=== PATIENT | male | born 1955 | race Caucasian/White ===

== ENCOUNTER 2016-05-15 10:29 | Emergency (ER) | payer MEDICARE ==
[2016-05-15 10:37] VITALS: TEMP 98.4; BMI 25.9
[2016-05-15 10:58] LABS: AUTOMATED BASOPHIL 0.7 % (0-2); AUTOMATED EOSINOPHIL 7.3 % (0-5); AUTOMATED MONOCYTE 4.8 % (3-10); AUTOMATED NEUTROPHIL 55.2 % (45-76); MPV 7.8 fL (7.4-10.4)
[2016-05-15] MEDS ORDERED: MORPHINE 4 MG/ML INJECTION IV ONE (11:02)
[2016-05-15] MEDS ORDERED: ONDANSETRON HCL 4 MG/2 ML VIAL IV ONE (11:02)
[2016-05-15] MEDS ORDERED: SODIUM CHLORIDE 0.9% 10 ML FLUSH FLUSH PRN (11:02)
--- NOTE | 2016-05-15 11:05 | EDPRACDOC ---
- General Information Chief Complaint: Dyspnea/Resp distress Stated Complaint: SHORTNESS OF BREATH Time Seen by Provider: 05/15/16 10:50 Information Source: Patient, Family Home Medications: Home Medications Albuterol/Ipratropium Neb [Duoneb] 3 ml INH Q4H PRN 03/05/13 Clonazepam [Klonopin] 0.5 mg PO BID 03/05/13 Furosemide [Lasix] 20 mg PO DAILY 03/05/13 Methadone HCl [Methadose] 10 mg PO TID 03/05/13 Acetaminophen with Codeine [TYLENOL WITH CODEINE; [employer] with Codeine] 5 ml PO Q6H PRN #120 ml 05/15/16 Budesonide/Formoterol Fumarate [Symbicort 160-4.5 Mcg Inhaler] 2 puff INH BID Levofloxacin [Levaquin] 750 mg PO DAILY #7 tab 05/15/16 Omeprazole [Prilosec] 20 mg PO BID 05/15/16 Prednisone [Deltasone, Orasone] 20 mg PO DAILY #20 tab 05/15/16 Venlafaxine HCl ER [Effexor XR] 75 mg PO DAILY 05/15/16 Allergies/Adverse Reactions: Allergies Allergy/AdvReac Type Severity Reaction Status Date / Time Sulfa (Sulfonamide Allergy Unknown Rash-Genera Verified 05/15/16 10:37 Antibiotics) lized - History of Present Illness Onset: 10 days HPI: Pt c/o yellow productive cough, sob, abd pain with swelling, n/v, generalized weakness, body aches bilateral rib pain x 10 days. Denies fever, earache, sore throat, congestion, cp, changes in bowel or bladder, leg swelling, rash. Hx pulmonary fibrosis and wears 3L NC constant Shortness of Breath: Mild Relevant History: Reports: Other (pulmonary fibrosis) Cough: Reports: Productive, Yellow Rhinorrhea: Reports: None Ear Symptoms: Reports: None SOB Worsens with: Reports: Exertion, Coughing, Lying Flat SOB Improves with: Reports: Nothing Associated Signs and symptoms: Reports: Cough, Nausea, Vomiting, Myalgia ED Past Medical History - History Reviewed Yes Nurses notes reviewed and agree except as marked - Patient Medical History Cardiac History: Reports: Hypertension Respiratory History: Reports: Asthma, Pneumonia (JAN 2013) Musculoskeletal History: Reports: Arthritis, Osteoarthritis Psychological History: Reports: Depression, Anxiety, Schizophrenia. Denies: Substance Use Disorder Systemic History: Denies: Cancer Surgical History: Reports: Cholecystectomy - Family Medical History Reports: Hypertension (mother, sister), Diabetes (father, sister), Cancer ( mother, sister), Stroke (mother, sister), Cardiac Disorders (mother, sister) - Social Medical History Smoking Status: Never smoker Social History: Denies: Substance Use Disorder ETOH: None Substance Abuse: None EDM Review of Systems - Review of Systems Constitutional: Fatigue, Weakness Ears: No Symptoms Reported. negative: Pain, Hearing Loss, Drainage, Ear Pulling Throat: No Symptoms Reported. negative: Pain, Swelling Nose: No Symptoms Reported. negative: Congestion, Bleeding, Discharge, Injection, Swelling, Deformity, Ecchymosis, Tender, Abrasion, Laceration Mouth: No Symptoms Reported. negative: Pain, Drooling Respiratory: Cough, Shortness of Breath Cardiovascular: No Symptoms Reported. negative: Chest Pain, Palpitations, Syncope, Edema, Orthopnea, PND, Skin Mottling, Cyanosis Gastrointestinal: Nausea, Pain, Vomiting Genitourinary: No Symptoms Reported. negative: Dysuria, Hematuria, Frequency, Discharge, Bleeding, Testicular Pain, Neurological: No Symptoms Reported. negative: Headache, Dizziness, Seizure, Numbness, Weakness, Speech Difficulty, Gait Difficulty Musculoskeletal: Ribs Integumentary: No Symptoms Reported. negative: Itching, Rash, Bruising, Wound Allergic/Immunologic: No Symptoms Reported. negative: Hives, Itching Hematologic: No Symptoms Reported. negative: Lymphadenopathy, Easy Bruising, Easy Bleeding Psychiatric: No Symptoms Reported. negative: Anxiety, Depression, Hallucinations, Insomnia, Suicidal - Physical Exam Constitutional: Alert Oriented to: Time, Person, Place Last recorded Vital Signs: Last Vital Signs Temp 98.4 F 05/15/16 10:31 Pulse 88 05/15/16 10:49 Resp 18 05/15/16 10:49 BP 141/79 05/15/16 10:49 Pulse Ox 98 05/15/16 10:49 Oxygen Pulse Oxygen Saturation 98 O2 Device Nasal Cannula Oxygen Flow Rate 3 Fraction of Inspired Oxygen ( 3 FIO2) - HEENT Head: Normal ( normocephalic) Eye Exam: Normal (PERRL, EOMI, Sclera white) Neck: Normal (FROM, trachea at midline) - Respiratory/Cardiovascular Respiratory: Rales Cardiovascular: Tachycardia - GI Auscultation: Decreased Palpation: Tense Tenderness: Diffuse, Mild, Moderate - Musculoskeletal Back: Normal (Non-Tender) Extremities: Normal (Normal tone, Pulses 2+ No cyanosis or edema, FROM) - Integumentary Skin: Normal, Warm, Dry Lymphatics: Normal (no adenopathy) - Neurologic Memory Impaired: Normal Motor Function: Normal (Normal tone, Pulses 2+ No cyanosis or edema, FROM) Mood Description: Normal Perception: Normal ED SOB MDM - Differential Diagnosis Differential Diagnosis: Heart Failure, Pulmonary Embolus, Pnuemonia, Respiratory Insufficiency, URI - Re-evaluation Re-evaluation 1 Re-evaluation Time: 15:06 (pt states he is worn out and request ABG to check and see what O2 is because he still feels sob) - Results Result Diagrams: 05/15/16 10:47 05/15/16 10:47 Results: WBC 9.1 xk/uL (3.8-10.8) 05/15/16 10:47 RBC 5.45 xM/uL (4.70-6.10) 05/15/16 10:47 Hgb 15.2 g/dL (14.0-18.0) 05/15/16 10:47 Hct 44.3 % (42-52) 05/15/16 10:47 MCV 81 fL (80-94) 05/15/16 10:47 MCH 28.0 pg (27-32) 05/15/16 10:47 MCHC 34.5 g/dl (33-36) 05/15/16 10:47 RDW 12.9 % (11.5-14.5) 05/15/16 10:47 Plt Count 162 xk/uL (130-400) 05/15/16 10:47 MPV 7.8 fL (7.4-10.4) 05/15/16 10:47 Neut % (Auto) 55.2 % (45-76) 05/15/16 10:47 Lymph % (Auto) 32.0 % (17-44) 05/15/16 10:47 [place] % (Auto) 4.8 % (3-10) 05/15/16 10:47 Eos % (Auto) 7.3 % (0-5) H 05/15/16 10:47 Baso % (Auto) 0.7 % (0-2) 05/15/16 10:47 Absolute Neuts (auto) 5.01 xk/uL (1.7-8.2) 05/15/16 10:47 Absolute Lymphs (auto) 2.91 xk/uL (0.65-4.75) 05/15/16 10:47 Lab Results 05/15/16 10:47 WBC 9.1 RBC 5.45 Hgb 15.2 Hct 44.3 MCV 81 MCH 28.0 MCHC 34.5 RDW 12.9 Plt Count 162 MPV 7.8 Neut % (Auto) 55.2 Lymph % (Auto) 32.0 [place] % (Auto) 4.8 Eos % (Auto) 7.3 H Baso % (Auto) 0.7 Absolute Neuts (auto) 5.01 Absolute Lymphs (auto) 2.91 - EKG EKG #1 EKG Time: 11:20 Rate: bpm: 89 Newman: LAD Rhythm: NSR Block: RBBB ST: Nonsp Comparison: 03/09/13 (no significant change) - Diagnostic Imaging Chest Image interpreted by: Radiologist Diagnostic Imaging Comments: IMPRESSION: No evidence for pulmonary embolism. No acute process within the abdomen or pelvis. Interval worsening of bilateral scattered ground-glass pulmonary opacities with associated interlobular septal thickening which are nonspecific and may represent worsening pulmonary infectious/inflammatory process. Acute process superimposed upon chronic interstitial lung disease is a consideration. Interval increase in mediastinal adenopathy which may be secondary to infectious or inflammatory process. Mild central intrahepatic biliary ductal dilatation likely secondary to post cholecystectomy state. - Additional Information Additional Information: Pt evaluated by brittaney Matias to d/c home Decision Time to Discharge: 15:29 - Departure Disposition: Home Condition: Good Final Diagnosis: Pneumonitis, Interstitial lung disease Instructions: Pulmonary Fibrosis (ED), Acute Bronchitis (ED) Education/Counseling Given To: Patient Education/Counseling Given Regarding: Diagnosis, Treatment, Follow Up Referrals: Kimberly Kwan MD [Primary Care Provider] - One Week Prescriptions: Acetaminophen with Codeine [TYLENOL WITH CODEINE; [employer] with Codeine] 5 ml PO Q6H PRN #120 ml PRN Reason: Cough Levofloxacin [Levaquin] 750 mg PO DAILY #7 tab Prednisone [Deltasone, Orasone] 20 mg PO DAILY #20 tab Additional Instructions: Continue oxygen as previously directed. Return for worse or different symptoms.
[2016-05-15 11:10] LABS: BLOOD UREA NITROGEN 12 MG/DL (9-20); CALCIUM 9.1 MG/DL (8.4-10.2); CALCULATED OSMOLALITY 264 MOs/Kg (270-290); CHLORIDE 96 mEq/L (98-107); GLUCOSE 138 MG/DL (70-99); SODIUM LEVEL 136 mEq/L (137-146)
[2016-05-15 11:32] LABS: LEUKOCYTES/URINE NEG (NEGATIVE); NITRITE/URINE NEG (NEGATIVE); RBC/URINE 0-2 (0-2); URINE OCCULT BLOOD NEG (NEG/TRACE); WBC/URINE 0-2 (0-2)
[2016-05-15] MEDS ORDERED: Pharmacy Review for Metformin - IV Contrast Given SCH (12:00)
--- NOTE | 2016-05-15 12:04 | DIRPT ---
CLINICAL DATA: Shortness of breath, cough, generalized weakness EXAM: PORTABLE CHEST 1 VIEW COMPARISON: 08/03/2014 FINDINGS: New cardiomediastinal silhouette is stable. Mild perihilar bronchitic changes. Mild perihilar and infrahilar interstitial prominence. Mild edema or pneumonitis cannot be excluded. No segmental infiltrate. IMPRESSION: Mild perihilar bronchitic changes. Mild perihilar and infrahilar interstitial prominence. Mild edema or pneumonitis cannot be excluded. No segmental infiltrate. Electronically Signed By: Julius Chang M.D. On: 05/15/2016 12:00
--- NOTE | 2016-05-15 13:40 | DIRPT ---
CLINICAL DATA: Patient with shortness of breath for 2 weeks. Abdominal pain and swelling. EXAM: CT ANGIOGRAPHY CHEST CT ABDOMEN AND PELVIS WITH CONTRAST TECHNIQUE: Multidetector CT imaging of the chest was performed using the standard protocol during bolus administration of intravenous contrast. Multiplanar CT image reconstructions and MIPs were obtained to evaluate the vascular anatomy. Multidetector CT imaging of the abdomen and pelvis was performed using the standard protocol during bolus administration of intravenous contrast. CONTRAST: 100 cc Isovue 370 COMPARISON: Chest CT 08/03/2014; abdomen pelvic CT 03/26/2012 FINDINGS: CTA CHEST FINDINGS Mediastinum/Nodes: Visualized thyroid is unremarkable. Interval increase in size of multiple enlarged mediastinal lymph nodes including a 1.8 cm right peritracheal lymph node (image 36; series 3), previously 1.5 cm and a 1.2 cm prevascular lymph node (image 40; series 3), previously 1.0 cm. Normal heart size. No pericardial effusion. Aorta and main pulmonary artery are normal in caliber. Note is made of a small hiatal hernia. Adequate opacification of the main pulmonary artery. No evidence for pulmonary embolism. Lungs/Pleura: When compared to prior examination there has been interval increase in diffuse bilateral ground-glass pulmonary opacities throughout all the lobes of lungs. There is associated interlobular septal thickening. No bronchiectasis. No subpleural honeycombing is identified. No pleural effusion or pneumothorax. Musculoskeletal: No aggressive or acute appearing osseous lesions. CT ABDOMEN and PELVIS FINDINGS Hepatobiliary: The liver is normal in size and contour. There is mild central intrahepatic biliary ductal dilatation and extrahepatic biliary ductal dilatation with the common bile duct measuring up to 11 mm. The patient is status post cholecystectomy. Unchanged 2.9 cm cystic lesion off the inferior aspect of right lobe of the liver (image 377; series 2). Pancreas: Marked fatty atrophy of the pancreas. Spleen: Unremarkable Adrenals/Urinary Tract: Normal adrenal glands. Kidneys enhance symmetrically with contrast. No hydronephrosis. Stomach/Bowel: No abnormal bowel wall thickening or evidence for bowel obstruction. No free fluid or free intraperitoneal air. Small hiatal hernia. Normal morphology to the stomach. No free fluid or free intraperitoneal air. Vascular/Lymphatic: Normal caliber abdominal aorta. No retroperitoneal lymphadenopathy. Reproductive: Prostate unremarkable. Musculoskeletal: Lumbar spine degenerative changes. No aggressive or acute appearing osseous lesions. Review of the MIP images confirms the above findings. IMPRESSION: No evidence for pulmonary embolism. No acute process within the abdomen or pelvis. Interval worsening of bilateral scattered ground-glass pulmonary opacities with associated interlobular septal thickening which are nonspecific and may represent worsening pulmonary infectious/inflammatory process. Acute process superimposed upon chronic interstitial lung disease is a consideration. Interval increase in mediastinal adenopathy which may be secondary to infectious or inflammatory process. Mild central intrahepatic biliary ductal dilatation likely secondary to post cholecystectomy state. Electronically Signed By: Tyree Escalante M.D. On: 05/15/2016 13:37
[2016-05-15] MEDS ORDERED: METHYLPREDNISOLONE 125 MG/2 ML VIAL IV ONE (14:45)
[2016-05-15] MEDS ORDERED: Levofloxacin 750 mg/150 ml D5W 750 MG/150 ML RTU IV ONE (14:45)
[2016-05-15] MEDS ORDERED: LORAZEPAM 1 MG TAB PO ONE (15:06)
[2016-05-15] MEDS ORDERED: ALBUTEROL 0.083% 3 ML NEB NEB ONE (15:07)
[2016-05-15 15:09] VITALS: BP 115/67; PULSE 76
[2016-05-15 15:24] LABS: ALLEN'S TEST PASS; BEb 4.8 (+/- 2); TCO2 31.3 MMOL/L (23-27)
[2016-05-15 15:25] LABS: ABG Draw Site RRA
== END 2016-05-15 16:28 | disposition home or self-care (01) ==
LOC: ED 10:29
DX: J18.9 Pneumonia, unspecified organism (principal); J84.9 Interstitial pulmonary disease, unspecified
CPT/HCPCS: 36415; 36600; 71010; 71275; 74177; 80053; 81001; 82803; 83605; 83880; 84484; 85025; 85610; 85730; 87040; 87086; 93005; 94640; 96365; 96375; 99285; A9270; A9698; J1956; J2270; J2405; J2930; J3490